=== PATIENT | female | born 1975 | race Caucasian/White ===

== ENCOUNTER 2020-01-12 12:40 | Outpatient (CLI) | payer OTHER, SELFPAY ==
--- NOTE | 2020-01-12 12:45 | ECG_ITS ---
Measurements Intervals [place] Rate: 69 P: 0 NC: 140 QRS: 37 QRSD: 87 T: 13 QT: 383 QTc: 411 Interpretive Statements SINUS RHYTHM DELAYED PRECORDIAL R/S TRANSITION BORDERLINE T WAVE ABNORMALITY- ANTERIOR LEADS BASELINE ARTIFACT- I, III, AVL BORDERLINE ECG Electronically Signed On 01-12-2020 14:24:39 CDT by Ángel Stephens D.O.
[2020-01-12 13:12] LABS: Hematocrit 41.3 % (37.0-47.0); Hemoglobin 14.1 g/dL (12.0-15.0); Mean Corpuscular HGB Conc 34.1 g/dl (32-36); Mean Corpuscular Hemoglobin 31.3 pg (26-34); Mean Corpuscular Volume 91.6 fl (80-100); Platelet Count Result 227 k/mm3 (150-375); Red Blood Count 4.51 M/mm3 (4.2-5.4); Red Cell Distribution Width 12.8 % (11.5-14.5); White Blood Count 11.2 K/mm3 (4.5-10.0)
== END 2020-01-12 12:41 | disposition home or self-care (01) ==
LOC: ANHSURGERY 12:45
PROVIDERS: PCP Family Medicine; Visit Provider Student in an Organized Health Care Education/Training Program
DX: N85.2 Hypertrophy of uterus (principal); Z87.891 Personal history of nicotine dependence
CPT/HCPCS: 36415; 85027; 86850; 86900; 86901; 93005

== ENCOUNTER 2020-01-16 03:40 | Outpatient (CLI) | payer OTHER, SELFPAY ==
[2020-01-16 18:37] LABS: SARS-CoV-2 RNA PCR Negative
== END 2020-01-16 03:41 | disposition home or self-care (01) ==
LOC: ANHCOVIDDT 03:41
PROVIDERS: Visit Provider Student in an Organized Health Care Education/Training Program
DX: Z01.812 Encounter for preprocedural laboratory examination (principal); Z20.828 Contact with and (suspected) exposure to other viral communicable diseases
CPT/HCPCS: 87635; C9803; U0003

== ENCOUNTER 2020-01-18 01:05 | Day surgery (SDC) | payer OTHER, SELFPAY ==
[2020-01-09 09:19] VITALS: BMI 37.7
[2020-01-18] VITALS (14 sets, daily range): BP systolic 93–158; BP diastolic 51–97; PULSE 51–88; RESP 13–20; TEMP 36–37.4; O2SAT 97–100
--- NOTE | 2020-01-18 07:32 | PM.IMHP ---
H&P: HPI History of Present Illness Date/Time: 01/18/20 07:32 Chief complaint: Enlarged Uterus, Post Coital Bleeding Narrative: Belem Escalante is a 44 year old female who presents for robotic assisted laparoscopic hysterectomy with bilateral salpingectomy for abnormal uterine bleeding. Pt has been having abnormal uterine bleeding for the past several months. Pt was given progesterone medical therapy but her symptoms did not improve. Pt opted for definitive management via hysterectomy. Review of Systems Cardiovascular: Cardiovascular: Denies chest pain, Denies leg edema, Denies palpitations, Denies dyspnea and Denies dyspnea on exertion Respiratory: Respiratory: Denies cough, Denies dyspnea and Denies dyspnea on exertion Gastrointestinal: Gastrointestinal: Denies abdominal pain, Denies constipation, Denies diarrhea, Denies nausea and Denies vomiting Genitourinary: Genitourinary: Denies hematuria, Denies urinary frequency, Denies dysuria, Denies pelvic pain, Denies urinary incontinence and Denies vaginal discharge Neurologic: Reports system reviewed and no additional complaints, except as documented Psychiatric: Psychiatric: Reports no additional psychiatric complaints Endocrine: Endocrine: Denies palpitations [facility] Social History Social History Smoking packs per day: 0.75 Smoking cigarettes per day: 15.0 Years smoked: 30 Smoking pack-years: 22.50 Smoking status: Current every day smoker Tobacco type: cigarettes Spiritual care concerns: No Meds Home Medications and Allergies Home Medications Medication Instructions Recorded Confirmed Type drospirenone (contraceptive) 4 mg PO DAILY 01/09/20 01/09/20 History [Slynd] multivitamin 1 tablet PO DAILY 01/09/20 01/09/20 History omeprazole 40 mg PO DAILY 01/09/20 01/09/20 History Allergies Allergy/AdvReac Type Severity Reaction Status Date / Time No Known Allergies Allergy Verified 01/09/20 09:21 Exam Const: General: no acute distress Eyes: EOM: EOMs intact bilaterally Neck: Neck: supple Thyroid: thyroid normal Chest: Breast/axilla inspection: normal inspection of the breasts Breast/axilla palpation: normal palpation of the breasts, normal palpation of the axillae and no axillary lymphadenopathy Resp: Effort & Inspection: normal respiratory effort Auscultation: clear to auscultation bilaterally Cardio: Rate: regular rate Rhythm: regular rhythm GI: Inspection: non-distended GI Palp: Yes Soft to palpation, No Tenderness to palpation present (GI) and No Guarding due to palpation present (GI) Auscultation: normal bowel sounds : General: No bladder normal to palpation External Female Exam: normal external appearance Speculum Exam - Vagina: normal vaginal discharge and No vaginal bleeding Speculum Exam - Cervix: nontender Bimanual exam- vagina & uterus: No bladder normal to palpation and No Cervical tenderness present OB/external & speculum: No vaginal bleeding Skin: General skin exam: normal color and no rashes or lesions noted Neuro: Cognition (Neuro): normal cognition Speech: normal speech Extrem: General: normal to inspection and no edema Psych: Mental Status: mental status grossly normal Affect: normal affect Assessment and Plan Assessment and plan (1) Abnormal uterine bleeding (AUB): Code(s): N93.9 - Abnormal uterine and vaginal bleeding, unspecified Status: Acute Assessment and Plan: pt c/o AUB for several months not improved with medical therapy US shows [id number] uterus, small 0.74 fibroid within the myometrium plan for robotic assisted TLH/BS (2) Uterine fibroid: Code(s): D25.9 - Leiomyoma of uterus, unspecified Status: Acute Assessment and Plan: US shows [id number] uterus, small 0.74 fibroid within the myometrium
[2020-01-18] MEDS: KETOROLAC 15 MG/ML VIAL (*BKC) IV PUSH (10:30)
[2020-01-18] MEDS: ACETAMINOPHEN 500 MG TABLET 1000 MG PO (10:30)
[2020-01-18] MEDS: LACTATED RINGERS 1,000 ML 30 ML IV CONT ×3 (10:30→15:37)
--- NOTE | 2020-01-18 11:04 | WPDANESEPPF ---
Anes - Initial Pre Proc Eval Procedure: Operation Date: 01/18/20 12:00 Proposed Procedures p Robotic Assisted Total Vaginal Hysterectomy With Bilateral Salpingectomy - Adriano Lucas MD Date/Time: 01/18/20 11:04 Surgeon: Adriano Lucas MD Pre Op Diagnosis: Enlarged Uterus, Post Coital Bleeding Patient Data Age: 44 Gender: F Height: 5 ft 3 in Weight: 96.62 kg Allergies Allergy/AdvReac Type Severity Reaction Status Date / Time No Known Allergies Allergy Verified 01/09/20 09:21 Home Medications Medication Instructions Recorded Confirmed Type drospirenone (contraceptive) 4 mg PO DAILY 01/09/20 01/09/20 History [Slynd] multivitamin 1 tablet PO DAILY 01/09/20 01/09/20 History omeprazole 40 mg PO DAILY 01/09/20 01/09/20 History Patient hx anesthesia problems: none Family hx anesthesia problems: none PMFSH Past Medical History Medical History (Updated 01/18/20 @ 11:04 by Leroy James MD) Obesity Social History Social History Smoking packs per day: 0.75 Smoking cigarettes per day: 15.0 Years smoked: 30 Smoking pack-years: 22.50 Smoking status: Current every day smoker Tobacco type: cigarettes Spiritual care concerns: No Anes - Eval Final PreProcedure Day of Procedure 01/18/20 11:04 Patient weight: obese Heart: regular rate and rhythm Lungs: clear to auscultation Airway: Mallampati scale class II Neurological: alert and oriented Last oral intake: >/= 8 hours ASA classification: III Emergent: no Anesthetic plan: proceed Anesthesia type and monitoring: general ETT and standard monitoring Informed Consent: The patient's anesthetic plan and its attendant risks and benefits were discussed with the patient/family/POA. Questions were solicited and answers provided to the satisfaction of the patient/family/POA.
--- NOTE | 2020-01-18 12:15 | WPDHPUPDATE1 ---
History and Physical Update Update Date/Time: 01/18/20 12:15 History and Physical has been reviewed, including an updated exam of the patient. There are NO changes in the patient's condition. Risks, benefits, and alternatives have been discussed and questions answered. Patient agrees to proceed with procedure.
[2020-01-18] MEDS: ceFAZolin 2 GM/D5W 50 ML 2 GM/50 ML BAG IVPB (13:13)
[2020-01-18] MEDS: LIDO 1%/EPINEPHRINE 1:100,000 20 ML VIAL INFILTRATE (14:03)
--- NOTE | 2020-01-18 14:44 | PM.PROC ---
Procedure Note - Detailed Date of procedure: 01/18/20 Pre-op diagnosis: Enlarged Uterus, Post Coital Bleeding Procedure performed: Robotic assisted total laparoscopic hysterectomy bilateral salpingectomy Description of procedure: PROCEDURE IN DETAIL: After the patient was appropriately consented she was taken to the operating room where she was transferred to the table in a dorsal supine position. General anesthesia was then induced with endotracheal intubation. The patient was transferred to a dorsal lithotomy position using adjustable yellow-fin stirrups. Her position was adjusted for appropriate support of her lower back and lower extremities. The patient was prepped and draped. A transurethral cardona catheter was place. The cervix was sequentially dilated and a Radha II uterine manipulator placed in typical fashion about a 3.5 cm DILIP ring. Gloves were changed. After confirmation of a functioning orogastric tube, lidocaine was injected at Caballero's point in the LUQ and a 5mm incision was made. A 5mm Optiview trocar was then inserted into the abdominal cavity under direct visualization and done so without complication. The abdomen was then insufflated with approximately 2-3L of CO2 establishing a pneumoperitoneum and the patient was placed in Trendelenburg position. Just above the umbilicus in the midline, a 8 mm incision made after injection of lidocaine and a 8 mm bladeless trocar advanced into the abdominal cavity under direct visualization without incident. We subsequently placed two robotic ports in a similar fashion, one in the left mid-quadrant and one in the right, 10cm lateral to the midline port. The robot was then docked. The left fallopian tube was identified out to the fimbrae. The fallopian tube was then coagulated and ligated along the inferior mesosalpinx toward the uterus. The utero-ovarian ligament was identified and ligated. The Left round ligament was divided and the posterior aspect of the broad ligament was then skeletonized down to the level of the internal cervical os, mobilizing the ureter laterally. Dense adhesions were noted between the left lateral anterior uterine wall to the pelvic side wall. This adhesions was sharpy dissected to free the uterus from the pelvic side wall. The bladder flap was then created sharply. The ipsilateral uterine artery was skeletonized, bipolar cauterized and transected. A similar procedure was performed on the contralateral side, developing the pelvic spaces, coagulating and dividing the IP away from the ureter, completing the bladder flap, and skeletonizing, ligating, and dividing the uterine artery on this side. We ensured the vaginal pneumo-occluder balloon was insufflated and made a circumferential colpotomy using monopolar current. The uterus, cervix, and bilateral tubes were then delivered transvaginally. I then re-approximated the colpotomy with a single interuppted 0-vicryl at the left apex and running #1 PDO Quill suture in 2 layers. Following this dissection, the abdomen and pelvis were copiously irrigated and all surgical sites found to be hemostatic. Skin sites were reapproximated with 4-0 Vicryl in a subcuticular fashion. Steri-Strips were placed. The patient tolerated the procedure well. Sponge, needle and instrument counts were correct x 2 and the patient was taken to recovery in stable condition. Ancef was given for antimicrobial prophylaxis. The patient had SCD's on for VTE prophylaxis during the entire procedure. Anesthesia: GETA Surgeon: Adriano Lucas MD Estimated blood loss (mL): 100 Urine output (mL): 50 Drains: No Packing: No Pathology: yes (uterus, cervix, bilateral fallopian tubes, bilateral ovaries ) Complications: No immediate complications Condition: stable Disposition: PACU
[2020-01-18] MEDS: ONDANSETRON INJ 4 MG/2 ML VIAL IV PUSH (15:37)
[2020-01-18] MEDS: diphenhydrAMINE HCl INJ 50 MG/ML VIAL 12.5 MG IV PUSH (15:59)
[2020-01-18] MEDS: DEXTROSE 5%/LACTATED RINGERS 1,000 ML 125 ML IV CONT (16:55)
[2020-01-18] MEDS: KETOROLAC 30 MG/ML VIAL (*BKC) IV PUSH (17:07)
--- NOTE | 2020-01-18 17:23 | PC.NURSE ---
This patient, Belem Escalante, was admitted to OB 2nd Floor Room 280-00. Patient/family oriented to hospital policies and general routines including ID bracelet, bed and alarms, visiting hours, pain management, procedures, bathroom and other care routines, personal items, smoking policy, room service/diet, and visiting hours. Valuables list has been completed. Information on how to activate the Rapid Response Team has been discussed. Patient/Family are encouraged to report perceived risks to care and to ask questions if they do not understand what they are told or what they should do.
[2020-01-19 04:15] VITALS: BP 153/79; PULSE 54; RESP 17; TEMP 37.1; O2SAT 100
[2020-01-19 05:39] LABS: Basophils Percent Auto 0.1 % (0.2-1.2); Hematocrit 41.9 % (37.0-47.0); Hemoglobin 14.3 g/dL (12.0-15.0); Immature Granulocyte Absolute 0.09 K/mm3 (0.00-0.031); Immature Granulocyte Percent A 0.5 % (0-0.5); Lymphocytes Absolute Auto 1.63 K/mm3 (0.9-3.2); Lymphocytes Percent Auto 9.9 % (18.3-44.2); Mean Corpuscular HGB Conc 34.1 g/dl (32-36); Mean Corpuscular Hemoglobin 31.4 pg (26-34); Mean Corpuscular Volume 91.9 fl (80-100); Mean Platelet Volume 12.5 fl (7.4-10.4); Monocytes Absolute Auto 0.5 K/mm3 (0.1-0.6); Monocytes Percent Auto 2.8 % (2.6-8.5); Neutrophils Absolute Auto 14.3 K/mm3 (1.3-6.7); Neutrophils Percent Auto 86.7 % (45.5-73.1); Platelet Count Result 253 k/mm3 (150-375); Red Blood Count 4.56 M/mm3 (4.2-5.4); Red Cell Distribution Width 12.6 % (11.5-14.5); White Blood Count 16.5 K/mm3 (4.5-10.0)
[2020-01-19 05:49] LABS: Anion Gap 7 mmol/L (8-16); Blood Urea Nitrogen 5 mg/dL (7-17); Carbon Dioxide 23 mmol/L (22-30); Chloride 106 mmol/L (98-107); Estimated CRCL calculation 112 ml/min; Estimated Glomerular Filt Rate > 60; Glucose 131 mg/dL (65-105); Potassium 4.1 mmol/L (3.4-5.0); Sodium 136 mmol/L (137-145)
--- NOTE | 2020-01-19 07:17 | PM.DS ---
DS: Admitting Diagnosis Admitting Diagnosis Admitting Diagnosis: Enlarged Uterus, Post Coital Bleeding DS: Summary Hospital Course Hospital Course: Belem Escalante was admitted after robotic assisted total laparoscopic hysterectomy and bilateral salpingectomy for abnormal uterine bleeding. The above procedure was performed with no complications. She is doing well post op. She states her pain is well controlled with PO medications. She reports minimal bleeding. She is ambulating up to the chair. Her cardona catheter was removed. She is tolerating PO without N/V. She reports passing flatus. Status at Discharge Overall status at discharge: patient is progressing back to baseline Time Spent with Patient Time attestation: Total time spent providing and/or coordinating discharge services: Time spent: Less than 30 minutes Exam Const: General: comfortable and no acute distress Limitations: no limitations Resp: Effort & Inspection: normal respiratory effort Auscultation: clear to auscultation bilaterally Cardio: Rate: regular rate Rhythm: regular rhythm GI: Inspection: non-distended GI Palp: Yes Soft to palpation, Yes Tenderness to palpation present (GI) (milder tenderness to deep palpation) and No Guarding due to palpation present (GI) Auscultation: normal bowel sounds Other: incisions C/D/I covered with dermabond Urinary Catheter: Urinary Catheter: urine clear Skin: General skin exam: normal color Extrem: General: normal to inspection Psych: Mental Status: mental status grossly normal Affect: normal affect DS: Data Data Completed and Pending Pending studies at discharge: Pending at discharge 01/18/20 14:32 Surgical [PTH] Routine Labs on day of discharge: Labs from last 24 hours 01/19/20 01/19/20 05:26 05:26 WBC 16.5 H RBC 4.56 Hgb 14.3 Hct 41.9 MCV 91.9 MCH 31.4 MCHC 34.1 RDW 12.6 Plt Count 253 MPV 12.5 H Immature Gran % (Auto) 0.5 Neut % (Auto) 86.7 H Lymph % (Auto) 9.9 L [place] % (Auto) 2.8 Eos % (Auto) 0.0 Baso % (Auto) 0.1 L Lymph # (Auto) 1.63 [place] # (Auto) 0.5 Eos # (Auto) 0.0 Baso # (Auto) 0.0 Abs Immat Gran (auto) 0.09 H Absolute Neuts (auto) 14.3 H Absolute Nucleated RBC 0.0 Nucleated RBC % 0.0 Sodium 136 L Potassium 4.1 Chloride 106 Carbon Dioxide 23 Anion Gap 7 L BUN 5 L Creatinine 0.60 L Estim Creat Clear Calc 112 Estimated GFR > 60 Glucose 131 H Calcium 9.0 Discharge Plan Discharge Patient Disposition: Home, Self-Care Discharge Instructions: call or return for temperature >100.4, bleeding >2 pads/hr for 2 hrs, pain not controlled with medications Patient Instructions: Laparoscopic Hysterectomy (DC) Stand Alone Forms: General Discharge Instructions Follow-up/Referrals: Adriano Lucas MD [Physician] - 2 Weeks Discharge Medications: New hydrocodone-acetaminophen 5-325 mg Tablet 1 tab PO Q6H PRN (Reason: Pain Rated 5 Or Less) Qty: 28 RF: 0 docusate sodium 100 mg Capsule 100 mg PO BID Qty: 30 RF: 0 ibuprofen 600 mg Tablet 600 mg PO Q6H PRN (Reason: Cramping) Qty: 30 RF: 0 Continued omeprazole 40 mg Capsule,Delayed Release(Dr/Ec) 40 mg PO DAILY RF: 0 multivitamin Tablet 1 tablet PO DAILY RF: 0 Discontinued Slynd 4 mg (28) Tablet 4 mg PO DAILY RF: 0 Primary Care Provider: MUNDOISADORA Attending physician on admission: Adriano Lucas
[2020-01-19 07:35] VITALS: BP 153/69; PULSE 62; RESP 16; TEMP 37.1; O2SAT 100
[2020-01-19] MEDS: DOCUSATE SODIUM 100 MG CAPSULE PO (08:11)
[2020-01-19] MEDS: PANTOPRAZOLE 40 MG TABLET PO (08:12)
[2020-01-19] MEDS: IBUPROFEN 600 MG TABLET PO (08:30)
--- NOTE | 2020-01-19 10:04 | WPDANESPN ---
Anes - Prog Note Post-Op Date/Time: 01/19/20 10:04 Cardiovascular status: normal Respiratory status: normal Airway patency: baseline Mental status: baseline Post-Op hydration status: normal Vital Signs: Last Vital Signs Temp 37.1 C 01/19/20 07:35 Pulse 62 01/19/20 07:35 Resp 16 01/19/20 07:35 BP 153/69 H 01/19/20 07:35 Pulse Ox 100 01/19/20 07:35 Pain Score (VAS): 0/10. Patient resting in bed at time of assessment. Pt complaints of mild cramping with relief with PRN medications and ambulation. No additional concerns or issues addressed by patient at time of assessment. I/O: Intake & Output 01/18/20 01/19/20 01/19/20 23:59 07:59 15:59 Intake Total 2550 360 Output Total 2125 2625 Balance 425 -2265 Laboratory Tests 01/19/20 05:26 01/19/20 05:26 01/19/20 01/19/20 05:26 05:26 WBC 16.5 H RBC 4.56 Hgb 14.3 Hct 41.9 MCV 91.9 MCH 31.4 MCHC 34.1 RDW 12.6 Plt Count 253 MPV 12.5 H Immature Gran % (Auto) 0.5 Neut % (Auto) 86.7 H Lymph % (Auto) 9.9 L [place] % (Auto) 2.8 Eos % (Auto) 0.0 Baso % (Auto) 0.1 L Lymph # (Auto) 1.63 [place] # (Auto) 0.5 Eos # (Auto) 0.0 Baso # (Auto) 0.0 Abs Immat Gran (auto) 0.09 H Absolute Neuts (auto) 14.3 H Absolute Nucleated RBC 0.0 Nucleated RBC % 0.0 Sodium 136 L Potassium 4.1 Chloride 106 Carbon Dioxide 23 Anion Gap 7 L BUN 5 L Creatinine 0.60 L Estim Creat Clear Calc 112 Estimated GFR > 60 Glucose 131 H Calcium 9.0 Post-procedural complaints: none Patient Feedback: Patient satisfied with anesthetic care.
[2020-01-19] MEDS: SIMETHICONE 80 MG TAB.CHEW PO (11:18)
[2020-01-19] MEDS: SIMETHICONE 80 MG TAB.CHEW (11:26)
== END 2020-01-19 11:28 | disposition home or self-care (01) ==
LOC: ANHSURGERY 09:44 → ANHOB2 16:37
PROVIDERS: PCP Family Medicine; Visit Provider Student in an Organized Health Care Education/Training Program
PROC: (CPT 58552; principal; 2020-01-18 12:00)
DX: N80.0 Endometriosis of uterus (principal); N73.6 Female pelvic peritoneal adhesions (postinfective); Q50.6 Other congenital malformations of fallopian tube and broad ligament; N83.6 Hematosalpinx; F17.210 Nicotine dependence, cigarettes, uncomplicated; Z79.899 Other long term (current) drug therapy
CPT/HCPCS: 58552; S2900; 36415; 80048; 85025; 88307; 99199; A9270; J0330; J0690; J1100; J1200; J1885; J2001; J2250; J2405; J2704; J2710; J3010; J7030; J7120; J7121